=== PATIENT | female | born 1990 | race Caucasian/White ===

== ENCOUNTER 2017-01-26 22:59 | Emergency (ER) | payer BC ==
[~2017-01-26] VITALS: Ht 154.9 cm; Wt 60.0 kg
[~2017-01-26 22:59] MED LIST: DICL50 PO; ROBA750T3 PO
[2017-01-26 23:03] VITALS: BP 104/60; PULSE 83; RESP 16; TEMP 98.5; O2SAT 98
[2017-01-26] MEDS ORDERED: CLIN1CAP6 PO (23:45)
--- NOTE | 2017-01-26 23:46 | PD ---
HPI Chief Complaint: Skin Problem Time Seen by Provider: 23:39 Travel History International Travel<30 days: No Contact w/Intl Traveler<30days: No Traveled to known affect area: No History of Present Illness HPI Patient 26-year-old female here for wound check of an abscess drainage which was 2 days ago. She apparently has 2 medical records at [facility], her visit number from the other day was [id number]. Patient states that she was prescribed clindamycin but hasn't had a chance to get up yet. She is an IV drug user. She was drained on 01/24/2017 by Jose Alberto Clancy. Patient states is the first time that the wound is been undressed since she's had it drained. She denies any fever denies any nausea vomiting. States the pain is minimal, location is left antecubital fossa. PFSH Past Medical History Diminished Hearing: No ?: Not LMP: APROX 2 MONTHS AGO Social History Alcohol Use: Yes (SOCIALLY) Tobacco Use: No Substance Use: No Allergies-Medications (Allergen,Severity, Reaction): Coded Allergies: No Known Allergies (Unverified , 01/26/17) Reported Meds & Prescriptions Reported Meds & Active Scripts Active Reported Clindamycin (Clindamycin HCl) 300 Mg Cap 600 Mg PO Q8H Review of Systems Except as stated in HPI: all other systems reviewed are Neg Physical Exam Narrative GENERAL: Well-nourished, well-developed patient. SKIN: Focused skin assessment warm/dry. There is a 2 cm laceration in the left antecubital fossa, no packing present, no discharge can be expressed. There 2 very small lymph nodes over the humerus on the left. No discrete sources of fluctuance are palpable. No lymph angina, no cellulitis present. HEAD: Normocephalic. EYES: No scleral icterus. No injection or drainage. NECK: Supple, trachea midline. No JVD or lymphadenopathy. CARDIOVASCULAR: Regular rate and rhythm without murmurs, gallops, or rubs. RESPIRATORY: Breath sounds equal bilaterally. No accessory muscle use. GASTROINTESTINAL: Abdomen soft, non-tender, nondistended. MUSCULOSKELETAL: No cyanosis, or edema. BACK: Nontender without obvious deformity. No CVA tenderness. Data Data Last Documented VS Vital Signs Date Time Temp Pulse Resp B/P (MAP) Pulse Ox O2 Delivery O2 Flow Rate FiO2 01/27/17 00:02 98.3 79 14 112/55 (74) 97 01/26/17 23:03 Room Air Orders Orders Ed Discharge Order (01/26/17 23:45) MDM Medical Decision Making Medical Screen Exam Complete: Yes Emergency Medical Condition: Yes Differential Diagnosis Abscess, cellulitis, sepsis unlikely. Narrative Course Patient appears to have healing wound after abscess drainage. No indication further drainage at this time. Patient was urged strongly to fill her antibiotics and take them. She states she still has a prescription. She was urged strongly to consider stopping heroin uses it will ultimately lead to significant action. She verbalized understanding and agreement. She stable for discharge. Discussed return to ED criteria. Diagnosis Primary Impression: Abscess Referrals: [facility] Disposition: 01 DISCHARGE HOME Condition: Stable Chris Deras MD Jan 26, 2017 23:46
[2017-01-27 00:02] VITALS: BP 112/55; TEMP 98.3
== END 2017-01-27 00:06 | disposition home or self-care (01) ==
LOC: NEPD 22:59
DX: L02.91 Cutaneous abscess, unspecified (principal)
CPT/HCPCS: 99281

== ENCOUNTER 2017-03-16 18:53 | Emergency (ER) | payer BC ==
[~2017-03-16 18:53] MED LIST changes: +CLIN300C5 PO; -DICL50 PO; -ROBA750T3 PO
[2017-03-16 19:31] VITALS: BP 109/72; PULSE 105; RESP 18; TEMP 97.8; O2SAT 99
[2017-03-16] MEDS ORDERED: ONDANSETRON HCL 4 MG/2 ML VIAL IV PUSH ONE (20:00)
[2017-03-16] MEDS ORDERED: SODIUM CHLORIDE 0.9% FLUSH 10 ML FLUSH IVF PRN (20:00)
--- NOTE | 2017-03-16 20:04 | PD ---
HPI Chief Complaint: Alcohol/Drug Intoxication Time Seen by Provider: 20:01 Travel History International Travel<30 days: No Contact w/Intl Traveler<30days: No Traveled to known affect area: No History of Present Illness HPI Examined in the presence of a female nurse. This is a 26-year-old female who presents via EMS for evaluation of opiate overdose. The patient reports over the past month she has been injecting opiates. Tonight she injected allotted for the first time and her friends called EMS because she was unresponsive. The patient became awake and alert with EMS, current GCS of 15, she was not administered any Narcan. She endorses some nausea and one episode of vomiting tonight. She endorses chronic lower back pain secondary to "bulging disks." She actually reports that she had an outpatient MRI of the lumbar spine 2.5 weeks ago which revealed bulging discs with no evidence of epidural abscess or osteomyelitis. She denies any fevers, chills, myalgias, abdominal pain, dysuria , chest pain or shortness of breath. Her last menstrual period is unknown. No other complaints. [facility] Past Medical History Medical History: Denies Significant Hx Diminished Hearing: No ?: Not Past Surgical History Surgical History: No Previous Surgery Social History Alcohol Use: No (SOCIALLY) Tobacco Use: Yes (1/2PPD) Substance Use: Yes (IVDU) Allergies-Medications (Allergen,Severity, Reaction): Coded Allergies: No Known Allergies (Unverified Adverse Reaction, Unknown, 03/16/17) Reported Meds & Prescriptions Reported Meds & Active Scripts Active No Active Prescriptions or Reported Medications Review of Systems Except as stated in HPI: all other systems reviewed are Neg Physical Exam Narrative Examined in the presence of a female nurse GENERAL: Well-developed well-nourished female who is awake, tearful. SKIN: Warm and dry. HEAD: Atraumatic. Normocephalic. EYES: Pupils equal and round. No scleral icterus. No injection or drainage. ENT: No nasal bleeding or discharge. Mucous membranes pink and moist. NECK: Trachea midline. No JVD. CARDIOVASCULAR: Regular rate and rhythm. No murmur appreciated. RESPIRATORY: No accessory muscle use. Clear to auscultation. Breath sounds equal bilaterally. GASTROINTESTINAL: Abdomen soft, non-tender, nondistended. Hepatic and splenic margins not palpable. MUSCULOSKELETAL: No obvious deformities. No clubbing. No cyanosis. No edema. There is no CVA tenderness. No reproducible tenderness to palpation along the cervical thoracic or lumbar midline spine. Full muscle strength in the upper and lower extremities. NEUROLOGICAL: Awake and alert. No obvious cranial nerve deficits. Motor grossly within normal limits. Normal speech. PSYCHIATRIC: Appropriate mood and affect; insight and judgment normal. Data Data Last Documented VS Vital Signs Date Time Temp Pulse Resp B/P (MAP) Pulse Ox O2 Delivery O2 Flow Rate FiO2 03/16/17 20:14 10 20 100 Room Air 03/16/17 19:31 97.8 109/72 (84) Orders Orders Electrocardiogram (03/16/17 19:59) Complete Blood Count With Diff (03/16/17 19:59) Comprehensive Metabolic Panel (03/16/17 19:59) Iv Access Insert/Monitor (03/16/17 19:59) Ecg Monitoring (03/16/17 19:59) Oximetry (03/16/17 19:59) Sodium Chloride 0.9% Flush (Ns Flush) (03/16/17 20:00) Drug Screen, Random Urine (03/16/17 19:59) Alcohol (Ethanol) (03/16/17 19:59) Salicylates (Aspirin) (03/16/17 19:59) Tylenol (Acetaminophen) (03/16/17 19:59) Ondansetron Inj (Zofran Inj) (03/16/17 20:00) Ed Urine Pregnancytest Poc (03/16/17 19:59) Ed Discharge Order (03/16/17 21:51) Labs Laboratory Tests Test 03/16/17 20:25 03/16/17 20:30 Urine Opiates Screen POS Urine Barbiturates Screen NEG Urine Amphetamines Screen POS Urine Benzodiazepines Screen POS Urine Cocaine Screen POS Urine Cannabinoids Screen POS White Blood Count 12.7 TH/MM3 Red Blood Count 4.97 MIL/MM3 Hemoglobin 13.5 GM/DL Hematocrit 39.7 % Mean Corpuscular Volume 79.8 FL Mean Corpuscular Hemoglobin 27.1 PG Mean Corpuscular Hemoglobin Concent 34.0 % Red Cell Distribution Width 13.6 % Platelet Count 269 TH/MM3 Mean Platelet Volume 8.2 FL Neutrophils (%) (Auto) 71.7 % Lymphocytes (%) (Auto) 17.5 % Monocytes (%) (Auto) 9.3 % Eosinophils (%) (Auto) 0.9 % Basophils (%) (Auto) 0.6 % Neutrophils # (Auto) 9.1 TH/MM3 Lymphocytes # (Auto) 2.2 TH/MM3 Monocytes # (Auto) 1.2 TH/MM3 Eosinophils # (Auto) 0.1 TH/MM3 Basophils # (Auto) 0.1 TH/MM3 CBC Comment DIFF FINAL Differential Comment Blood Urea Nitrogen 13 MG/DL Creatinine 0.99 MG/DL Random Glucose 85 MG/DL Total Protein 9.2 GM/DL Albumin 4.4 GM/DL Calcium Level 9.2 MG/DL Alkaline Phosphatase 75 U/L Aspartate Amino Transf (AST/SGOT) 228 U/L Alanine Aminotransferase (ALT/SGPT) 326 U/L Total Bilirubin 0.8 MG/DL Sodium Level 136 MEQ/L Potassium Level 4.2 MEQ/L Chloride Level 103 MEQ/L Carbon Dioxide Level 27.6 MEQ/L Anion Gap 5 MEQ/L Estimat Glomerular Filtration Rate 68 ML/MIN Salicylates Level LESS THAN 1.7 MG/DL Acetaminophen Level LESS THAN 2.0 MCG/ML Ethyl Alcohol Level LESS THAN 3 MG/DL MDM Medical Decision Making Medical Screen Exam Complete: Yes Emergency Medical Condition: Yes Medical Record Reviewed: Yes Differential Diagnosis Unintentional opiate overdose, syncope, intentional opiate overdose, respiratory failure Narrative Course The patient was placed on ECG monitoring and pulse oximetry. A 12-lead EKG will be obtained. Plan is for basic lab work. She will be administered Zofran. EKG reveals sinus rhythm with a rate of 78. CBC reveals a WBC count 12.7. Drug screen is positive for opiates, amphetamines, benzodiazepines, cocaine, cannabinoids. Liver enzymes are elevated- AST 228, ALT 326. The patient reports that she does not share needles. It is recommended that she follow up with primary care physician for repeat liver enzyme testing and hepatitis testing. She'll be discharged when she has a sober ride home. Diagnosis Primary Impression: Opiate overdose Qualified Codes: T40.601A - Poisoning by unspecified narcotics, accidental ( unintentional), initial encounter Additional Impression: Elevated liver enzymes Referrals: [facility] Additional Instructions: Consider attending a detoxification facility such as [facility]. Follow-up with primary care physician for viral hepatitis testing. Return for any emergent medical conditions. Med/Other Pt SpecificInfo: No Change to Meds Scripts No Active Prescriptions or Reported Meds Disposition: 01 DISCHARGE HOME Condition: Stable Zachary Smith Mar 16, 2017 20:04
[2017-03-16 21:12] LABS: AUTOMATED NEUTROPHIL # 9.1 TH/MM3 (1.8-7.7); BASOPHIL # 0.1 TH/MM3 (0-0.2); BASOPHIL % 0.6 % (0.0-2.0); EOSINOPHIL # 0.1 TH/MM3 (0-0.4); EOSINOPHIL % 0.9 % (0.0-4.0); HEMATOCRIT 39.7 % (35.0-46.0); HEMO FLAGS DIFF FINAL; LYMPH % 17.5 % (9.0-44.0); LYMPHOCYTE # 2.2 TH/MM3 (1.0-4.8); MEAN CELL VOLUME 79.8 FL (80.0-100.0); MEAN CORPUSCULAR HEMOGLOBIN 27.1 PG (27.0-34.0); MONO % 9.3 % (0.0-8.0); NEUT % 71.7 % (16.0-70.0); PLATELET COUNT 269 TH/MM3 (150-450); RED BLOOD COUNT 4.97 MIL/MM3 (4.00-5.30); RED CELL DISTRIBUTION WIDTH 13.6 % (11.6-17.2); WHITE BLOOD COUNT 12.7 TH/MM3 (4.0-11.0)
[2017-03-16 21:38] LABS: ALT (GPT) 326 U/L (10-53); ANION GAP 5 MEQ/L (5-15); AST (GOT) 228 U/L (15-37); BICARBONATE 27.6 MEQ/L (21.0-32.0); BLOOD UREA NITROGEN 13 MG/DL (7-18); CHLORIDE 103 MEQ/L (98-107); GLOMERULAR FILTRATION RATE 68 ML/MIN (>89); POTASSIUM 4.2 MEQ/L (3.5-5.1); SODIUM (NA) 136 MEQ/L (136-145)
[2017-03-16 21:41] LABS: ALKALINE PHOSPHATASE 75 U/L (45-117); TOTAL BILIRUBIN ADULT 0.8 MG/DL (0.2-1.0)
[2017-03-16 21:46] LABS: ACETAMINOPHEN LESS THAN 2.0 MCG/ML (10.0-30.0); ALCOHOL LESS THAN 3 MG/DL (0-5)
--- NOTE | 2017-03-17 18:48 | EKG ---
Date Performed: 03/16/2017 Time Performed: 20:48:20 PTAGE: 26 years EKG: Sinus rhythm NORMAL ECG NO PREVIOUS TRACING DOCTOR: Roe Zhang Interpretating Date/Time 03/17/2017 18:47:04
== END 2017-03-16 22:18 | disposition home or self-care (01) ==
LOC: NEPD 18:53
DX: T40.601A Poisoning by unspecified narcotics, accidental (unintentional), initial encounter (principal); R74.8 Abnormal levels of other serum enzymes; R11.2 Nausea with vomiting, unspecified; F17.200 Nicotine dependence, unspecified, uncomplicated; M54.9 Dorsalgia, unspecified; G89.29 Other chronic pain
CPT/HCPCS: 80053; 80307; 84703; 85025; 93005; 96374; 99284; J2405